=== PATIENT | male | born 1980 | race Caucasian/White ===

== ENCOUNTER 2017-10-02 11:27 | Emergency (ER) | payer BC, MEDICAID ==
[~2017-10-02] VITALS: Ht 185.4 cm; Wt 104.5 kg
[~2017-10-02 11:27] MED LIST: TRAM50TA2 PO
[2017-10-02 11:38] VITALS: BP 147/95
[2017-10-02] MEDS ORDERED: KETOROLAC 30 MG/1 ML ONE (12:26)
[2017-10-02] MEDS ORDERED: DIAZEPAM 5 MG TABLET ONE (12:26)
[2017-10-02] MEDS ORDERED: KETOROLAC 30 MG/1 ML IM ONE (12:30)
[2017-10-02] MEDS ORDERED: DIAZEPAM 5 MG TABLET PO ONE (12:30)
== END 2017-10-02 13:00 | disposition home or self-care (01) ==
LOC: ED 12:54
DX: M51.36 Other intervertebral disc degeneration, lumbar region (principal); M51.34 Other intervertebral disc degeneration, thoracic region
CPT/HCPCS: 72072; 72110; 96372; 99284; J1885

== ENCOUNTER → 2018-10-29 | Outpatient (CLI) | payer BC, MEDICAID ==
[~2018-10-29] MED LIST changes: +DULO20CA45 PO; +VARE1TAB21 PO; +[UNRECOGNIZED DRUG - OTHER]
[2018-10-29 16:13] LABS: BASOPHILS # (AUTO) 0.04 x10^3/uL (0-0.1); BASOPHILS % (AUTO) 1 % (0-1); EOSINOPHILS # (AUTO) 0.06 x10^3/uL (0-0.4); EOSINOPHILS % (AUTO) 1 % (1-7); HCT (SEDRATE) 50.3 % (39.2-51.8); LYMPHOCYTES # (AUTO) 1.68 x10^3/uL (1-3.4); LYMPHOCYTES % (AUTO) 28 % (22-44); MD NO; MEAN CORPUSCULAR HEMOGLOBIN 30.9 pg (27.5-34.5); MEAN CORPUSCULAR HGB CONC 34.5 g/dL (33.2-36.2); MEAN CORPUSCULAR VOLUME 89.6 fL (81-97); MEAN PLATELET VOLUME 8.1 fL (7.4-10.4); MONOCYTES # (AUTO) 0.41 x10^3/uL (0.2-0.8); MONOCYTES % (AUTO) 7 % (2-9); NEUTROPHILS # (AUTO) 3.77 x10^3/uL (1.8-6.8); NEUTROPHILS % (AUTO) 63 % (42-75); PLATELET COUNT 196 x10^3/uL (130-400); RED BLOOD COUNT 5.59 x10^6/uL (4.38-5.82)
[2018-10-29 16:22] LABS: INTERNATIONAL NORMALIZED RATIO 1.03 (0.93-1.1); PROTHROMBIN TIME 10.8 Seconds (9.6-11.5)
[2018-10-29 16:23] LABS: ALANINE AMINOTRANSFERASE 69 U/L (12-78); ALBUMIN 4.6 g/dL (3.4-5.0); ANION GAP 5 mmol/L (5-15); CALCIUM 9.5 mg/dL (8.5-10.1); CHLORIDE 107 mmol/L (98-107); CREATININE 1.22 mg/dL (0.7-1.3)
[2018-10-29 16:25] LABS: ALKALINE PHOSPHATASE 74 U/L (45-117); BILIRUBIN,TOTAL 0.6 mg/dL (0.2-1.0); TOTAL PROTEIN 8.1 g/dL (6.4-8.2)
== END | disposition home or self-care (01) ==
LOC: STAR 14:52
PROVIDERS: ATTEND Orthopaedic Surgery Orthopaedic Surgery of the Spine
DX: Z01.818 Encounter for other preprocedural examination (principal); R94.31 Abnormal electrocardiogram [ECG] [EKG]; M43.16 Spondylolisthesis, lumbar region; M48.061 Spinal stenosis, lumbar region without neurogenic claudication
CPT/HCPCS: 36415; 71046; 80053; 85025; 85610; 85651; 85730; 93005

== ENCOUNTER 2019-02-01 05:50 | Inpatient (IN) | payer MEDICAID ==
[~2019-02-01] VITALS: Ht 180.3 cm; Wt 110.0 kg
[2019-02-03 07:55] VITALS: BP 106/62
== END 2019-02-03 11:19 | disposition home or self-care (01) | DRG 460 ==
LOC: ORIP 05:50 → 4NOR 13:58
PROVIDERS: ADMIT Orthopaedic Surgery Orthopaedic Surgery of the Spine; ATTEND Orthopaedic Surgery Orthopaedic Surgery of the Spine
PROC: 0SG00AJ Fusion of Lumbar Vertebral Joint with Interbody Fusion Device, Posterior Approach, Anterior Column, Open Approach (ICD-10-PCS; principal; 2019-02-01)
PROC: 01NB0ZZ Release Lumbar Nerve, Open Approach (ICD-10-PCS; 2019-02-01)
PROC: 0SB20ZZ Excision of Lumbar Vertebral Disc, Open Approach (ICD-10-PCS; 2019-02-01)
PROC: 4A11X4G Monitoring of Peripheral Nervous Electrical Activity, Intraoperative, External Approach (ICD-10-PCS; 2019-02-01)
PROC: 07DR0ZZ Extraction of Iliac Bone Marrow, Open Approach (ICD-10-PCS; 2019-02-01)
DX: M48.061 Spinal stenosis, lumbar region without neurogenic claudication (principal); K21.9 Gastro-esophageal reflux disease without esophagitis; I10 Essential (primary) hypertension; M43.16 Spondylolisthesis, lumbar region; M54.16 Radiculopathy, lumbar region
CPT/HCPCS: 36415; 72100; 80053; 80307; 81001; 83036; 85025; 85610; 85651; 85730; 87086; C1713; G0378; J0690; J1100; J1885; J2250; J2270; J2405; J2704; J3010; J3370; C1760; C1762; C1763; C9362; J0330; J3480

== ENCOUNTER 2019-02-24 15:52 | Emergency (ER) | payer MEDICAID ==
[~2019-02-24] VITALS: Ht 180.3 cm; Wt 102.6 kg
[2019-02-24 15:54] VITALS: BP 127/80
== END 2019-02-24 17:34 | disposition home or self-care (01) ==
LOC: ED 17:15
DX: S39.012A Strain of muscle, fascia and tendon of lower back, initial encounter (principal); X58.XXXA Exposure to other specified factors, initial encounter; Y93.89 Activity, other specified; Y92.89 Other specified places as the place of occurrence of the external cause; Y99.8 Other external cause status
CPT/HCPCS: 72110; 96372; 99283; J1885